=== PATIENT | male | born 1950 | race Caucasian/White ===

== ENCOUNTER 2016-08-18 15:27 | Emergency (ER) | payer OTHER ==
[~2016-08-18] VITALS: Ht 170.2 cm; Wt 117.6 kg
[~2016-08-18 15:27] MED LIST: ALPRAZOLAM0.5 MG GT; ASPIR 8181 M1 PO; ASPIRIN325 MG PO; BACTRIM,SEPT1 TABLET PO; CARVEDILOL12.5 MG GT; CLONAZEPAM1 MG PO; CLOPIDOGREL75 MG PO; COLACE100 MG PO; COREG12.5 M1 GT; COREG25 M1 PO; CYANOCOBALAM1000 MCG GT; DAILY VITE1 EAC1 GT; ERGOCALCIF50000 UNIT GT; ESCITALOPRAM OX10 MG GT; FEROSUL220 MG/51 GT; FLAGYL500 MG PO; FLOMAX0.4 MG PO; FUROSEMIDE20 MG PO; FUROSEMIDE40 MG PO; GLIPIZIDE10 MG PO; KEFLEX500 MG PO; LASIX40 MG GT; LEVEMIR FL100 UNIT/1 SC; LEXAPRO10 MG GT; LISINOPRIL20 MG PO; LISINOPRIL40 MG PO; MAG-TAB SR84 MG GT; MAGBID ER84 MG GT; MEDROL DOSEPAK4 MG PO; MIDODRINE HCL5 MG GT; MULTI-DELYN473 M1 GT; NEUTRA-PHOS,1 PACKET GT; OXYCODONE HCL10 MG GT; OXYCODONE HCL10 MG PO; OXYCODONE-APAP1 EACH PO; OXYCONTIN10 MG GT; PERCOCET 5/31 TABLET PO; PROTONIX40 M1 GT; SIMVASTATIN40 MG PO; TAMSULOSIN HCL0.4 MG GT; TRAZODONE HCL50 MG GT; TYLENOL REGULA325 MG GT; VANCOCIN 250 M250 MG GT; VANCOMYCIN HCL125 MG PO; VANCOMYCIN HCL500 MG GT; VITAMIN B12 100MCG GT; ZOFRAN4 MG GT
[2016-08-18] MEDS ORDERED: HYDRALAZINE HCL25 MG PO (16:25)
[2016-08-18] MEDS ORDERED: TRADJENTA5 MG PO (16:26)
[2016-08-18 17:14] LABS: HEMATOCRIT 27.7 % (38.0-50.0); MCH 31.2 PG (29.0-34.0); MCHC 33.2 G/DL (30.0-36.0); MCV 93.9 FL (86-99); MEAN PLAT.VOLUME 9.7 uM^3 (9.0-12.4); PLATELET COUNT 219 K/uL (156-360); RBC DIS.WIDTH-CV 12.7 % (11.8-14.6); RED BLOOD COUNT 2.95 M/uL (4.00-5.50); WHITE BLOOD COUNT 13.5 K/uL (4.1-10.2)
[2016-08-18 17:23] LABS: CHLORIDE 107 mEq/L (99-109); SODIUM 137 mEq/L (136-147)
[2016-08-18 17:25] LABS: GLUCOSE 105 mg/dL (70-99)
[2016-08-18 17:27] LABS: ANION GAP 8 MEQ/L (2-14); TOTAL BILIRUBIN 0.2 mg/dL (0.0-1.0)
[2016-08-18 17:29] LABS: ALKALINE PHOSPHATASE 27 IU/L (3-129); GFR ESTIMATE (CALCULATED) 29 mL/min/
[2016-08-18 17:30] LABS: UREA NITROGEN (BUN) 36 mg/dL (9-23)
[2016-08-18 17:32] LABS: LIPASE 32 U/L (1.0-51.0)
[2016-08-18 17:35] LABS: TROP-I INTERPRETATION NEGATIVE; TROPONIN-I < 0.01 ng/mL (0.0-0.30)
[2016-08-18] MEDS ORDERED: COREG6.25 M1 PO (18:03)
[2016-08-18] MEDS ORDERED: VITAMIN D31000 UNIT PO (18:05)
[2016-08-18] MEDS ORDERED: OMEPRAZOLE20 MG PO (18:05)
[2016-08-18] MEDS ORDERED: STIOLTO RESPIMAT4 GM IH (18:05)
[2016-08-18] MEDS ORDERED: LEVEMIR FL100 UNIT/1 SC (18:05)
[2016-08-18] MEDS ORDERED: LASIX20 MG PO (18:06)
[2016-08-18] MEDS ORDERED: SENNA8.6 MG PO (18:07)
[2016-08-18] MEDS ORDERED: CYANOCOBAL1000 MCG/2 IM ×2 (18:07)
[2016-08-18] MEDS ORDERED: SPIRONOLACTONE25 MG PO (18:08)
[2016-08-18] MEDS ORDERED: GAS RELIEF180 M1 PO (18:08)
[2016-08-18] MEDS ORDERED: MIRALAX255 GM PO (18:08)
[2016-08-18] MEDS ORDERED: XIFAXAN550 MG PO (18:08)
[2016-08-18 18:58] LABS: ADD MIUA? NO; BILIRUBIN NEGATIVE; BLOOD NEGATIVE; COLOR YELLOW ((YELLOW)); GLUCOSE (STRIP) NEGATIVE; KETONES NEGATIVE; LEUKOCYTES NEGATIVE; NITRITE NEGATIVE; PROTEIN (STRIP) 30; SPECIFIC GRAVITY 1.012 (1.000-1.030); UCUL ADDED? NO; UROBILINOGEN 0.2 MG/DL (0.2-1.0)
[2016-08-18] MEDS ORDERED: MECLIZINE HCL25 MG PO (20:11)
[2016-08-18] MEDS ORDERED: BENTYL10 MG PO (20:11)
[2016-08-18 21:22] VITALS: BP 162/70
== END 2016-08-18 21:23 | disposition home or self-care (01) ==
LOC: EME 15:27
PROVIDERS: Emergency Medicine
DX: J44.9 Chronic obstructive pulmonary disease, unspecified (principal); H81.399 Other peripheral vertigo, unspecified ear; R10.84 Generalized abdominal pain; D64.9 Anemia, unspecified; N18.9 Chronic kidney disease, unspecified; J45.909 Unspecified asthma, uncomplicated; I11.0 Hypertensive heart disease with heart failure; I50.9 Heart failure, unspecified; G89.29 Other chronic pain; E11.9 Type 2 diabetes mellitus without complications; E78.5 Hyperlipidemia, unspecified; I25.2 Old myocardial infarction; F17.200 Nicotine dependence, unspecified, uncomplicated
CPT/HCPCS: 70450; 71010; 74176; 80053; 81003; 83690; 84484; 85027; 93005; 99281; 99285; J2270; J7030

== ENCOUNTER 2017-11-07 12:49 | Emergency (ER) | payer OTHER ==
[~2017-11-07] VITALS: Ht 172.7 cm; Wt 122.7 kg
[~2017-11-07 12:49] MED LIST changes: +BENTYL10 MG PO; +BUPROPION HCL100 MG PO; +COREG6.25 M1 PO; +CYANOCOBAL1000 MCG/2 IM; +FLONASE16 G1 BOTH NARES; +GAS RELIEF180 M1 PO; +HYDRALAZINE HCL25 MG PO; +LASIX20 MG PO; +MECLIZINE HCL25 MG PO; +MIRALAX255 GM PO; +MONTELUKAST SOD10 MG PO; +OMEPRAZOLE20 MG PO; +SENNA8.6 MG PO; +SPIRONOLACTONE25 MG PO; +STIOLTO RESPIMAT4 GM IH; +TRADJENTA5 MG PO; +VELTASSA8.4 GM PO; +VITAMIN D31000 UNIT PO; +XIFAXAN550 MG PO; +ZYLOPRIM100 MG PO
[2017-11-07 14:02] LABS: HEMATOCRIT 30.3 % (38.0-50.0); HEMOGLOBIN 9.9 G/DL (12.5-16.6); MCH 32.8 PG (29.0-34.0); MCHC 32.7 G/DL (30.0-36.0); MCV 100.3 FL (86-99); PLATELET COUNT 205 K/uL (156-360); RBC DIS.WIDTH-CV 13.9 % (11.8-14.6); RBC DIS.WIDTH-SD 50.4 % (39-53); RED BLOOD COUNT 3.02 M/uL (4.00-5.50); WHITE BLOOD COUNT 12.9 K/uL (4.1-10.2)
[2017-11-07 14:14] LABS: CHLORIDE 102 mEq/L (99-109); POTASSIUM 4.8 mEq/L (3.7-5.4); SODIUM 138 mEq/L (136-147)
[2017-11-07 14:15] LABS: GLUCOSE 119 mg/dL (70-99)
[2017-11-07 14:18] LABS: CREATININE 2.8 mg/dL (0.6-1.3); GFR ESTIMATE (CALCULATED) 24 mL/min/ (58.99-99999)
[2017-11-07 14:19] LABS: UREA NITROGEN (BUN) 30 mg/dL (9-23)
[2017-11-07 14:25] LABS: TROP-I INTERPRETATION NEGATIVE; TROPONIN-I 0.01 ng/mL (0.0-0.30)
[2017-11-07 14:46] LABS: ALBUMIN 3.5 g/dL (3.2-4.8)
[2017-11-07 14:49] LABS: TOTAL PROTEIN 8.8 g/dL (6.4-8.3)
[2017-11-07 14:51] LABS: TOTAL BILIRUBIN 0.3 mg/dL (0.0-1.0)
[2017-11-07 14:52] LABS: ALKALINE PHOSPHATASE 32 IU/L (3-129)
[2017-11-07 14:54] LABS: AST (GOT) 17 IU/L (2-34); DIRECT BILIRUBIN 0.2 mg/dL (0.0-0.3)
[2017-11-07 14:55] LABS: ALT (GPT) 12 IU/L (3-49)
[2017-11-07] MEDS ORDERED: DUONEB 2.5-0.5 M3 ML AEROSOL (15:12)
[2017-11-07] MEDS ORDERED: NEBULIZER MC (15:12)
[2017-11-07 16:04] VITALS: BP 178/78
== END 2017-11-07 16:08 | disposition home or self-care (01) ==
LOC: EME 12:49
PROVIDERS: Emergency Medicine Emergency Medical Services
DX: J44.1 Chronic obstructive pulmonary disease with (acute) exacerbation (principal); I50.9 Heart failure, unspecified; I13.0 Hypertensive heart and chronic kidney disease with heart failure and stage 1 through stage 4 chronic kidney disease, or unspecified chronic kidney disease; N18.9 Chronic kidney disease, unspecified; I25.2 Old myocardial infarction; E11.9 Type 2 diabetes mellitus without complications; Z95.5 Presence of coronary angioplasty implant and graft; Z79.82 Long term (current) use of aspirin; Z79.891 Long term (current) use of opiate analgesic; F17.200 Nicotine dependence, unspecified, uncomplicated; Z88.8 Allergy status to other drugs, medicaments and biological substances
CPT/HCPCS: 71045; 80048; 80076; 83880; 84484; 85027; 93005; 94640; 99281; 99285; J1940; J2930; J3475